=== PATIENT | male | born 1960 | race Caucasian/White ===

== ENCOUNTER 2017-04-16 12:05 | Emergency (ER) | payer MEDICARE ==
--- NOTE | 2017-04-16 12:22 | Emergency Department Record ---
History of Present Illness - General Chief complaint: Extremity Problem Stated complaint: RIGHT LEG INJURY Time Seen by Provider: 04/16/17 12:09 Source: Patient Mode of Arrival: Ambulatory Limitations: No limitations - History of Present Illness Initial comments: 57 yo male presents with right leg pain. Yesterday he was unloading a washing machine off a [employer] and the machine moved hitting his right lower leg. The right lower leg suffered a severe injury 9 years ago. Since that time he has had chronic pain, chronic wound and drainage. For several years he followed an orthopedist. He has had some drainage everyday for nine years. No fevers or changes in his chronic drainage that has been present for [address] De La Garza is his doctor and has followed the leg for at least three years. He last saw an orthopedist greater than 3 years ago. No numbness or tingling to the foot. No pain with movement of the foot. No calf pain. He uses a walker for support and to minimize weight bearing. MD Complaint: Extremity pain -: Days(s) (1) Location: Right -: Yes Arthralgia Radiation: Other (Mid) Quality: Crushing Consistency: Constant Improves with: Elevation Worsens with: Exertion, Palpation, Walking, Weight bearing Associated Symptoms: Denies other symptoms - Related Data Home Medications Medication Instructions Recorded Confirmed Last Taken Atorvastatin Calcium 20 mg PO DAILY 04/16/17 04/16/17 04/16/17 Carvedilol 12.5 mg PO DAILY 04/16/17 04/16/17 04/16/17 Ciprofloxacin HCl [Cipro] 500 mg PO Q12HR 04/16/17 04/16/17 04/16/17 Hydrocodone/Acetaminophen [[place] 1 each PO Q4HR PRN 04/16/17 04/16/17 04/16/17 09:30 10-325 Tablet] Lisinopril [Prinivil] 5 mg PO DAILY 04/16/17 04/16/17 04/16/17 Oxycodone HCl [Oxycontin] 10 mg PO DAILY 04/16/17 04/16/17 04/16/17 Allergies Allergy/AdvReac Type Severity Reaction Status Date / Time Penicillins Allergy PT UNSURE Verified 04/16/17 12:16 OF REACTION Review of Systems Constitutional: Denies: Chills, Fever, Malaise, Weakness Eyes: Denies: Eye discharge ENT: Denies: Congestion, Throat pain Respiratory: Denies: Cough, Dyspnea, Hemoptysis, Stridor, Wheezes Cardiovascular: Denies: Chest pain, Palpitations, Syncope Endocrine: Denies: Fatigue Gastrointestinal: Denies: Abdominal pain, Diarrhea, Nausea, Vomiting Genitourinary: Reports: Retention. Denies: Dysuria, Frequency, Hematuria Musculoskeletal: Reports: Arthralgia, Myalgia Skin: Reports: As per HPI, Change in color Neurological: Denies: Headache Psychiatric: Denies: Anxiety Hematological/Lymphatic: Denies: Blood Clots, Easy bleeding, Easy bruising, Swollen glands Physical Exam - General General Appearance: Alert, Oriented x3, Cooperative, No acute distress Limitations: No limitations - Head Head exam: Atraumatic, Normocephalic, Normal inspection - Eye Eye exam: Normal appearance - ENT ENT exam: Normal exam Ear exam: Normal external inspection Nasal Exam: Normal inspection Mouth exam: Normal external inspection - Neck Neck exam: Normal inspection - Cardiovascular Cardiovascular Exam: Regular rate, Normal rhythm, Normal heart sounds Peripheral Pulses: 2+: Dorsalis Pedis (R) - Rectal Rectal exam: Deferred - exam: Deferred - Extremities Extremities exam: Normal capillary refill, Tenderness, Other (very soft calf that is non tender, sensation to the foot is fully intact with brisk CR and pulses, no increase in pain with passive or active foot movement). negative: Normal inspection, Calf tenderness, Full ROM, Joint swelling, Pedal edema Image of Full Body: 1 - extensive chronic scarring and central wound, no abnormal pus, warmth, or FB. Tender anterior su to palpation, foot is normal on inspection with intact sensation and pulses. - Back Back exam: Denies: CVA tenderness (R), CVA tenderness (L) - Neurological Neurological exam: Alert, Oriented X3 - Psychiatric Psychiatric exam: Normal affect, Normal mood - Skin Skin exam: Dry, Intact, Normal color, Warm. negative: Cyanosis, Diaphoretic, Erythema, Mottled Course - Reevaluation(s) Reevaluation #1: The XR was reviewed. 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 No acute changes or fractures on today's XR compared to prior Xr on EMR per the radiologist. 04/16/17 13:20 We discussed chronic wound and recommendation for discussion with his PCP about outpatient orthopedic referred for the pain and wound for 9 years. 04/16/17 13:30 Disposition Disposition: Discharge Clinical Impression: Contusion, lower leg Qualifiers: Encounter type: initial encounter Laterality: right Qualified Code(s): S80.11XA - Contusion of right lower leg, initial encounter Disposition: Home, Self-Care Condition: (1) Good Instructions: Contusion in Adults (ED) Additional Instructions: Call Dr De La Garza for close follow up of your chronic leg condition Return if worse, weakness, changes in feeling or sensation, or any new concerns No weight bearing until pain free Forms: Patient Portal Access Time of Disposition: 13:23
[2017-04-16] MEDS ORDERED: HYDROMORPHONE HCL 1 MG/ML CPJ IM ONE (12:23)
--- NOTE | 2017-04-17 05:31 | RADIOLOGY REPORT ---
DATE: 04/16/2017 at 12:54 p.m. EXAM: RIGHT LOWER LEG. HISTORY: Crushing injury a day ago. Had a washer fall on his leg. Chronic tib /fib injury in the past. TECHNIQUE: AP and lateral views of the right lower leg. COMPARISON: Right tibia fibula dated 04/20/2012. ENCOUNTER: Initial. FINDINGS: Marked deformity of the proximal to mid tibia again seen, also present previously. There is probably a bony fusion between the upper tibia and fibula also present previously. When comparison is made with the prior study, no definite acute fracture of the tibia or fibula evident. There are probably old pin tracts in the tibia and also a surgical clip in the upper calf posteriorly, also present before. IMPRESSION: 1. MARKED DEFORMITY OF THE MID TO UPPER RIGHT TIBIA, PROBABLY A COMBINATION OF OLD INJURY AND SURGERY, ALSO PRESENT ON 04/20/2012. 2. FUSION OF THE PROXIMAL TIBIA AND FIBULA BEFORE. 3. NO DEFINITE ACUTE FRACTURE OF THE RIGHT LOWER LEG IDENTIFIED. JOB NUMBER: [id number] MTDD
== END 2017-04-16 13:57 | disposition home or self-care (01) ==
LOC: ER 12:05
DX: S80.11XA Contusion of right lower leg, initial encounter (principal); W23.1XXA Caught, crushed, jammed, or pinched between stationary objects, initial encounter; Y93.89 Activity, other specified; G89.21 Chronic pain due to trauma; M79.661 Pain in right lower leg
CPT/HCPCS: 99283; 96372; 99284; 73590; J1170